=== PATIENT | male | born 1960 | race Hispanic/Latino ===

== ENCOUNTER 2018-04-26 01:31 | Emergency (ER) | payer MEDICARE ==
[2018-04-26] MEDS ORDERED: TORADOL IV ONE (05:08)
[2018-04-26] MEDS ORDERED: APRESOLINE IV ONE (05:08)
[2018-04-26] MEDS ORDERED: SUBLIMAZE IV ONE (05:19)
[2018-04-26] MEDS ORDERED: TORADOL IM ONE (05:21)
[2018-04-26] MEDS ORDERED: MORPHINE IM ONE (05:21)
[2018-04-26 05:32] VITALS: BP 171/88
--- NOTE | 2018-04-26 05:44 | Emergency Department Report ---
HPI - General Chief Complaint: Back Pain/Injury Time Seen by Provider: 04/26/18 05:03 - HPI HPI: The patient is a 57-year-old male with a history of chronic back pain for years , who presents for evaluation recurrence of his pain. The patient reports bilateral low back pain since 2 PM yesterday, nearly 14 hours prior to my evaluation. He states that his back pain has been constant since onset, sharp in quality, 10/10 in severity, exacerbated with bending over. 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 The patient denies blunt trauma to the back, fall, fever, chills, night sweats, saddle anesthesia, paresthesias, numbness or tingling in the legs, leg weakness, urine or bowel incontinence or retention, difficulty ambulating, or other focal neurological deficits. ED Past Medical Hx - Past Medical History Previous Medical History?: Yes Hx Hypertension: Yes - Surgical History Past Surgical History?: Yes - Medications Home Medications: Home Medications Medication Instructions Recorded Confirmed Last Taken Type Aspirin EC [Aspirin Enteric Coated 81 mg PO QDAY 04/26/18 04/26/18 04/25/18 History TAB] Atorvastatin [Lipitor Tab] 80 mg PO QHS 04/26/18 04/26/18 04/25/18 History Carvedilol [Coreg] 6.25 mg PO BID 04/26/18 04/26/18 04/25/18 History Gabapentin [Gralise] 300 mg PO TID 04/26/18 04/26/18 04/25/18 History HYDROcodone/APAP 5-325 [[place] 1 each PO Q6HR PRN #14 tablet 04/26/18 Unknown Rx 5/325] Hydrochlorothiazide [HCTZ] 25 mg PO QDAY 04/26/18 04/26/18 04/25/18 History Ibuprofen [Motrin] 800 mg PO Q8HR PRN #15 tablet 04/26/18 Unknown Rx Lisinopril [Zestril] 20 mg PO QDAY 04/26/18 04/26/18 04/25/18 History ED Review of Systems ROS: Stated complaint: BACK PAIN Other details as noted in HPI Constitutional: denies: fever ENT: denies: throat or neck pain Respiratory: denies: cough, shortness of breath Cardiovascular: denies: chest pain Endocrine: denies unexplained weight loss or gain Gastrointestinal: denies: abdominal pain, nausea Genitourinary: denies: dysuria Musculoskeletal: reports back pain denies: leg swelling Skin: denies: rash Neurological: denies: headache Hematological/Lymphatic: denies: easy bleeding or easy bruising Psych: denies sadness or hopelessness Physical Exam - Physical Exam Vital Signs: Vital Signs 04/26/18 04/26/18 04/26/18 02:08 02:13 03:59 Temperature 98.4 F 98.4 F Pulse Rate 73 73 64 Respiratory 18 18 18 Rate Blood Pressure 188/99 188/99 Blood Pressure 196/105 [Left] O2 Sat by Pulse 99 99 99 Oximetry 04/26/18 05:31 Temperature Pulse Rate 62 Respiratory 18 Rate Blood Pressure Blood Pressure 171/88 [Left] O2 Sat by Pulse 99 Oximetry Physical Exam: General: well-nourished, well-developed, no acute distress Head: Normocephalic, atraumatic Eyes: normal sclera ENT: Mucous membranes are pink and moist Neck: trachea midline, neck supple, No neck stiffness, no cervical adenopathy Respiratory: Breath sounds equal bilaterally, no wheezing, rales, or rhonchi Cardio: S1 and S2 present, no murmurs, rubs, gallops, capillary refill is brisk Abdomen: Normoactive bowel sounds, soft abdomen, no rigidity, no guarding or rebound tenderness Chest WALL/Back: No tenderness to palpation of the chest wall, no CVA tenderness with percussion Musc: Tenderness to palpation present to bilateral lumbar paraspinal musculature , pain is elicited with flexion at the hip, normal active range of motion at the hip intact, no spinous step-off or obvious deformity, ipsi-lateral and contralateral straight leg raise tests are negative. On extremity testing, compartments are soft and pliable, no obvious gross motor strength deficit, 5+ motor strength, including extension of the great toe bilaterally, no muscular atrophy, spasticity, fasciculations, or clonus, no obvious gross sensation deficit including web space between 1st and 2nd toes, reflexes 2+ & symmetric on DTR testing at the knee and ankle joints, distal pulses intact. Skin: No rash Neuro: no facial drooping, normal speech Psych: Normal affect ED Course Vital Signs 04/26/18 04/26/18 04/26/18 02:08 02:13 03:59 Temperature 98.4 F 98.4 F Pulse Rate 73 73 64 Respiratory 18 18 18 Rate Blood Pressure 188/99 188/99 Blood Pressure 196/105 [Left] O2 Sat by Pulse 99 99 99 Oximetry 04/26/18 05:31 Temperature Pulse Rate 62 Respiratory 18 Rate Blood Pressure Blood Pressure 171/88 [Left] O2 Sat by Pulse 99 Oximetry ED Medical Decision Making - Medical Decision Making The patient was seen and examined by myself. The patient is placed on a color television console monitor and continuous pulse ox. On initial evaluation, the patient was found to be in no distress. No findings on exam concerning for cauda equina syndrome, spinal stenosis, or epidural abscess. As the patient has no midline tenderness on exam, no neuro deficits, and no findings concerning for emergent etiology of their back pain, imaging will not be obtained at this time. The patient is given pain IM medicine. The patient was reevaluated and reported that their pain significantly improved. The patient is stable for discharge with outpatient follow-up. The patient is given follow-up and return instructions. The patient expressed understanding and agreed with the plan. The patient is discharged in stable condition. Critical care attestation.: If time is entered above; I have spent that time in minutes in the direct care of this critically ill patient, excluding procedure time. ED Disposition Clinical Impression: Acute bilateral low back pain without sciatica Disposition: TO HOME OR SELFCARE Is pt being admited?: No Does the pt Need Aspirin: No Condition: Stable Instructions: Low Back Strain (ED), Acute Low Back Pain (ED) Referrals: LEONEL LUND MD [Primary Care Provider] - 3-5 Days OSWALDO GONZALEZ MD [Staff Physician] - 3-5 Days Time of Disposition: 05:34
== END 2018-04-26 05:48 | disposition home or self-care (01) ==
LOC: ED 01:31
DX: M54.5 Low back pain (principal); G89.29 Other chronic pain; I10 Essential (primary) hypertension; Z88.1 Allergy status to other antibiotic agents; Z91.018 Allergy to other foods
CPT/HCPCS: 96372; 99283; J1885; J2270

== ENCOUNTER 2018-05-25 02:31 | Emergency (ER) | payer MEDICARE ==
[2018-05-25] MEDS ORDERED: FLEXERIL ONE (02:50)
[2018-05-25] MEDS ORDERED: PERCOCET 5/325 ONE (02:51)
[2018-05-25] MEDS ORDERED: PERCOCET 5/325 PO ONE (02:52)
[2018-05-25] MEDS ORDERED: FLEXERIL PO ONE (02:52)
[2018-05-25] MEDS ORDERED: MOTRIN ONE (03:38)
[2018-05-25] MEDS ORDERED: MOTRIN PO ONE (03:40)
--- NOTE | 2018-05-25 05:01 | Emergency Department Report ---
ED Back Pain/Injury HPI - General Chief Complaint: Back Pain/Injury Stated Complaint: HIP PAIN Time Seen by Provider: 05/25/18 05:01 Source: patient Limitations: No Limitations - History of Present Illness Initial Comments: 57-year-old male comes to the emergency room for swelling and to the left lower back with pain. Patient reports he was helping his sister move a refrigerator and felt something pop but did not have any pain at that time. Patient reports about midnight he woke with pain with movement. Patient reports that the pain is throbbing and radiates to his left leg. Patient reports that he has a past medical history of colon cancer stage III, history of L4-L5 and S1 ruptured disc, hypertension. Patient was last seen here on 09/2018 for hypertension and back pain. MD Complaint: back pain, back injury -: Gradual, During the night Similar Symptoms Previously: Yes Place: other Radiation: left leg (sister's house) Severity scale (0 -10): 10 Quality: sharp, stabbing Consistency: constant Worsens With: movement Context: while lifting Associated Symptoms: denies other symptoms - Related Data Home Medications Medication Instructions Recorded Confirmed Last Taken Aspirin EC [Aspirin Enteric Coated 81 mg PO QDAY 04/26/18 04/26/18 04/25/18 TAB] Atorvastatin [Lipitor Tab] 80 mg PO QHS 04/26/18 04/26/18 04/25/18 Carvedilol [Coreg] 6.25 mg PO BID 04/26/18 04/26/18 04/25/18 Gabapentin [Gralise] 300 mg PO TID 04/26/18 04/26/18 04/25/18 Hydrochlorothiazide [HCTZ] 25 mg PO QDAY 04/26/18 04/26/18 04/25/18 Lisinopril [Zestril] 20 mg PO QDAY 04/26/18 04/26/18 04/25/18 Previous Rx's Medication Instructions Recorded Last Taken Type HYDROcodone/APAP 5-325 [[place] 1 each PO Q6HR PRN #14 tablet 05/25/18 Unknown Rx 5-325 mg TAB] Ibuprofen [Motrin 800 MG tab] 800 mg PO Q8HR PRN #15 tablet 05/25/18 Unknown Rx Allergies Allergy/AdvReac Type Severity Reaction Status Date / Time amoxicillin Allergy Itching Verified 04/26/18 02:17 peach Allergy Anaphylaxis Verified 04/26/18 02:17 ED Review of Systems ROS: Stated complaint: HIP PAIN Other details as noted in HPI Musculoskeletal: back pain ED Past Medical Hx - Past Medical History Previous Medical History?: Yes Hx Hypertension: Yes Hx of Cancer: Yes (stage 3 colon Ca. in remission) Additional medical history: chronic back pain - Surgical History Past Surgical History?: Yes Additional Surgical History: evgeny to left leg. pin to right hip. part colon removed. power port - Social History Smoking Status: Current Every Day Smoker Substance Use Type: None - Medications Home Medications: Home Medications Medication Instructions Recorded Confirmed Last Taken Type Aspirin EC [Aspirin Enteric Coated 81 mg PO QDAY 04/26/18 04/26/18 04/25/18 History TAB] Atorvastatin [Lipitor Tab] 80 mg PO QHS 04/26/18 04/26/18 04/25/18 History Carvedilol [Coreg] 6.25 mg PO BID 04/26/18 04/26/18 04/25/18 History Gabapentin [Gralise] 300 mg PO TID 04/26/18 04/26/18 04/25/18 History Hydrochlorothiazide [HCTZ] 25 mg PO QDAY 04/26/18 04/26/18 04/25/18 History Lisinopril [Zestril] 20 mg PO QDAY 04/26/18 04/26/18 04/25/18 History HYDROcodone/APAP 5-325 [[place] 1 each PO Q6HR PRN #14 tablet 05/25/18 Unknown Rx 5-325 mg TAB] Ibuprofen [Motrin 800 MG tab] 800 mg PO Q8HR PRN #15 tablet 05/25/18 Unknown Rx ED Physical Exam - General Limitations: No Limitations General appearance: alert, in no apparent distress - Head Head exam: Present: atraumatic, normocephalic - ENT ENT exam: Present: mucous membranes moist - Respiratory Respiratory exam: Present: normal lung sounds bilaterally. Absent: respiratory distress - Cardiovascular Cardiovascular Exam: Present: regular rate, normal rhythm. Absent: systolic murmur, diastolic murmur, rubs, gallop - Extremities Exam Extremities exam: Present: normal inspection - Back Exam Back exam: Present: muscle spasm, other (left lower back swelling appreciated) - Expanded Back Exam Expanded Back exam: Sciatic Notch Tenderness: Left, Positive Straight Leg Raise: Left ( positive cross leg exam) - Neurological Exam Neurological exam: Present: alert, oriented X3 - Psychiatric Psychiatric exam: Present: normal affect, normal mood - Skin Skin exam: Present: warm, dry, intact, normal color. Absent: rash ED Course Vital Signs 05/25/18 05/25/18 05/25/18 02:38 02:48 03:11 Temperature 98.0 F Pulse Rate 73 65 Respiratory 18 18 Rate Blood Pressure 182/105 182/100 165/95 [Right] O2 Sat by Pulse 99 99 Oximetry ED Medical Decision Making - Medical Decision Making Patient has been evaluated by this provider fast track. Patient has a history of chronic back pain with ruptured disks. Patient was given Percocet 5 mg Flexeril 10 mg and dexamethasone 8 mg. We'll discharge patient on [place] 03/18/2025 one tablet by mouth every 6 hours when necessary dispensed 14 tablets. As well as Motrin 800 mg every 8 hours when necessary #15. We'll refer patient to [facility] orthopedist for further evaluation. Critical care attestation.: If time is entered above; I have spent that time in minutes in the direct care of this critically ill patient, excluding procedure time. ED Disposition Clinical Impression: Back pain with left-sided sciatica Disposition: - TO HOME OR SELFCARE Is pt being admited?: No Does the pt Need Aspirin: No Condition: Stable Additional Instructions: Please take pain medication as prescribed. It is very importantly to follow-up with orthopedist I have listed several below. Prescriptions: HYDROcodone/APAP 5-325 [[place] 5-325 mg TAB] 1 each PO Q6HR PRN #14 tablet PRN Reason: Pain Ibuprofen [Motrin 800 MG tab] 800 mg PO Q8HR PRN #15 tablet PRN Reason: Pain Referrals: PRIMARY MD JACOB [Primary Care Provider] - 3-5 Days [facility] [Provider Group] - 3-5 Days OSWALDO GONZALEZ MD [Staff Physician] - 3-5 Days Forms: Work/School Release Form(ED)
[2018-05-25] MEDS ORDERED: DECADRON IM ONE (05:02)
[2018-05-25 06:02] VITALS: BP 146/73
== END 2018-05-25 06:05 | disposition home or self-care (01) ==
LOC: ED 02:31
DX: M54.42 Lumbago with sciatica, left side (principal); I10 Essential (primary) hypertension; F17.200 Nicotine dependence, unspecified, uncomplicated; Z88.1 Allergy status to other antibiotic agents; Z91.018 Allergy to other foods; Z79.82 Long term (current) use of aspirin; Z85.038 Personal history of other malignant neoplasm of large intestine; X58.XXXA Exposure to other specified factors, initial encounter; Y93.89 Activity, other specified; Y99.8 Other external cause status; Y92.89 Other specified places as the place of occurrence of the external cause
CPT/HCPCS: 96372; 99283; J1100